=== PATIENT | male | born 1945 | race Caucasian/White ===

== ENCOUNTER 2021-04-06 09:22 | Outpatient (CLI) | payer BC, SELFPAY ==
--- NOTE | 2021-04-06 08:45 | DI.RAD_ITS ---
Exam(s) XR WRIST LT COMPLETE EXAM: XR WRIST LT COMPLETE CLINICAL HISTORY: pain. TECHNIQUE: 2D digital imaging was performed of the left wrist. Three images were obtained. PA, obl ique and lateral views were obtained. COMPARISON: DX XR WRIST COMPLETE from 04/08/2016 FINDINGS: BONES: No acute fracture is present. No bony destructive lesion is seen. JOINTS: There is again seen widening of the scapholunate joint suggestive of ligamentous injury. The re are now moderately severe degenerative changes seen at the radioscaphoid joint with joint space na rrowing and subchondral sclerosis. There is persistent dorsal tilt of the lunate. SOFT TISSUE: Normal. IMPRESSION: Progressive degenerative changes at the radiocarpal joint. 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 DATA REPOSITORY: RADIATION DOSE DELIVERED:
--- NOTE | 2021-04-06 08:45 | DI.RAD_ITS ---
Exam(s) XR HIP RT COMPLETE AP PELVIS EXAM: XR HIP RT COMPLETE AP PELVIS CLINICAL HISTORY: pain. TECHNIQUE: 2D digital imaging was performed of the right hip. Two images were obtained. AP pelvis a nd lateral right hip views were obtained. COMPARISON: No exams were available for comparison FINDINGS: BONES: No acute fracture is present. No bony destructive lesion is seen. JOINTS: No dislocation present. There are mild degenerative changes of the hips. SOFT TISSUE: Atherosclerosis is present. IMPRESSION: Mild degenerative changes of the hips. DATA REPOSITORY: RADIATION DOSE DELIVERED:
== END 2021-04-06 09:23 | disposition home or self-care (01) ==
LOC: DIORS 09:22
PROVIDERS: PCP Family Medicine; Referring Provider Family Medicine; Visit Provider Physician Assistant Surgical
DX: M25.551 Pain in right hip (principal); M25.532 Pain in left wrist; M16.11 Unilateral primary osteoarthritis, right hip; M19.132 Post-traumatic osteoarthritis, left wrist
CPT/HCPCS: 73110; 73502

== ENCOUNTER 2021-04-12 00:52 | Outpatient (CLI) | payer BC, SELFPAY ==
--- NOTE | 2021-04-12 13:01 | W.PROCNOTE ---
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 Noninvasive measures have been tried. To serve as both diagnostic and therapeutic, an injection under fluoroscopy was recommended. I had discussed the risks of the procedure and the patient elected to proceed. Procedure Description: Luke was greeted in the flouroscopy room. The correct sites were identified and the consent was reviewed with the patient and signed. Starting with the left wrist, he was sat next to the fluoroscopy table with the left hand resting on the table. The dorsum of the wrist was prepped with Chloraprep. Using fluoroscopy, a startng point between the distal radius and capitate was selected and located. The soft tissues were injected with 1% Lidocaine. I then entered the wrist joint at this location with fluoroscopic guidance. A small maount of Omnipaque was injected and confirmed intra-articular placement. I then injected 1cc of 0.5% Bupivacaine and 40mg of Depo-Medrol. He tolerated this wel land a bandaid was applied. Attention was then turned to the right hip. The patient was placed in the supine position on the fluoroscopy table. The RIGHT hip was then prepped with Chloraprep. The anterolateral injection starting point was identiifed by bony landmarks and fluoroscopy. The skin and soft tissue in the tract of the injection was anesthetized with 1% Lidocaine. A spinal needle was then inserted deep into the hip joint at the level of the lateral femoral neck under fluoroscopic guidance. A small amount of Omnipaque solution was injected to confirm intraarticular placement. Once confirmed, the hip was injected with 6cc of 0.5% Bupivicaine and 80mg of Depo-Medrol. A bandaid was placed on the injection site. The patient tolerated the procedure well and noted improvement in pre-injection pain.
[2021-04-12] MEDS: methylPREDNISolone ACETATE 40 MG/ML VIAL IM (13:03)
[2021-04-12] MEDS: Omnipaque 300 MG/ML 10 ML BTL IJ ×2 (13:04→13:06)
[2021-04-12] MEDS: Bupivacaine 0.5% Pres-Free 10 ML VIAL IJ ×2 (13:05→13:07)
[2021-04-12] MEDS: methylPREDNISolone ACETATE 80 MG/ML VIAL IM (13:06)
== END 2021-04-12 01:12 ==
PROVIDERS: PCP Family Medicine; Visit Provider Student in an Organized Health Care Education/Training Program
DX: M16.11 Unilateral primary osteoarthritis, right hip (principal); M19.032 Primary osteoarthritis, left wrist; M25.551 Pain in right hip; R10.31 Right lower quadrant pain; M25.532 Pain in left wrist
CPT/HCPCS: 20610; 20605; 76000; J1030; J1040

== ENCOUNTER 2021-09-03 01:40 | Outpatient (CLI) | payer BC, SELFPAY ==
[2021-09-03 14:50] LABS: Abs Immature Grans 0.02 10^3/uL (0.0-0.06); Absolute Basophil Count 0.09 10^3/uL (0.0-0.2); Absolute Eosinophil Count 0.15 10^3/uL (0.0-0.7); Absolute Lymphocyte Count 1.83 10^3/uL (1.2-3.4); Absolute Monocyte Count 0.53 10^3/uL (0.1-0.8); Absolute Neutrophil Count 6.69 10^3/uL (1.2-6.7); Eosinophils % 1.6; HCT 39.2 % (40.0-50.0); HGB 12.7 g/dL (13.5-17.5); Immature Grans % 0.2; Lymphocytes % 19.7; MCH 29.1 pg (27.0-33.0); MCHC 32.4 % (32.0-36.0); MCV 90 fL (80-95); MPV 9.8 fL (8.0-11.0); Monocytes % 5.7; Neutrophils % 71.8; Platelet Count 273 10^3/uL (130-400); RBC 4.37 10^6/uL (4.36-5.78); RDW 13.5 % (11.8-14.1); RDW-SD 44.6 fL; WBC 9.31 10^3/uL (4.4-10.8)
[2021-09-03 15:55] LABS: ALT 18 U/L (16-63); AST 13 U/L (15-37); Albumin 3.8 g/dL (3.4-5.0); Alkaline Phosphatase 72 U/L (46-116); Anion Gap 6.2 mmol/L (3-11); BUN 14 mg/dL (7-18); Bilirubin, Total 0.3 mg/dL (0.2-1.0); CO2 27.8 mmol/L (21.0-32.0); CREATININE 0.9 mg/dL (0.70-1.30); Calcium 9.2 mg/dL (8.5-10.1); Chloride 103 mmol/L (98-107); Glucose 96 mg/dL (74-106); Potassium 4.3 mmol/L (3.5-5.1); Sodium 137 mmol/L (136-145); Total Protein 7.2 g/dL (6.4-8.2)
[2021-09-06 09:50] LABS: PSA, Ultrasensitive 6.1 ng/mL (<= 6.5)
[2021-09-08 00:08] LABS: Testosterone, Total 313 ng/dL (240-950)
== END 2021-09-03 01:41 | disposition home or self-care (01) ==
LOC: LBO 01:40
PROVIDERS: PCP Family Medicine; Visit Provider Radiology Radiation Oncology
DX: Z15.03 Genetic susceptibility to malignant neoplasm of prostate (principal)
CPT/HCPCS: 80053; 84153; 84403; 85025

== ENCOUNTER → 2021-11-15 00:33 | Outpatient (CLI) | payer BC, SELFPAY ==
--- NOTE | 2021-11-15 | DI.RAD_ITS ---
Exam(s) XR ARTHRITIS SERIES EXAM: XR ARTHRITIS SERIES CLINICAL HISTORY: H/O RHEUMATOID ARTHRITIS,Z87.39,PAIN BOTH HANDS, M79.641,M79.642,BILAT WRIS. TECHNIQUE: 2D digital imaging was performed. COMPARISON: DX XR WRIST COMPLETE from 04/08/2016 FINDINGS: 3 views of both hands There is no evidence of fracture, subluxations, nor abnormal soft tissue calcifications. No osseous lesions. No erosions evident. In the left wrist there is significant degenerative narrowing in the radiocarpal joint. Also widening of the scapholunate distance at this level in the left wrist. Johnna lar findings are not seen in the right wrist. This is probably related to prior injury at this level . There are no degenerative changes at the 1st carpometacarpal joints on either side. Bone density is normal. No ominous osseous lesions. IMPRESSION: No erosions. Degenerative narrowing of the radiocarpal joint of the left wrist. Also widened scapholunate distanc e the left wrist. DATA REPOSITORY: RADIATION DOSE DELIVERED:
--- NOTE | 2021-11-15 | DI.RAD_ITS ---
Exam(s) XR SHOULDER LT COMPLETE 2+V EXAM: XR SHOULDER LT COMPLETE 2+V CLINICAL HISTORY: H/O RA,Z87.39,CHRONIC PAIN BILAT SHOULDERS,M25.511,M25.512,INFLAMMATORY. TECHNIQUE: 2D digital imaging was performed. COMPARISON: No exams were available for comparison FINDINGS: Five views No evidence of fracture or dislocation. No abnormal soft tissue calcifications no joint space narrow ing. Mild degenerative changes in the AC joint. Mild AC joint degenerative changes. Glenohumeral joint appears unremarkable. No fractures. IMPRESSION: DATA REPOSITORY: RADIATION DOSE DELIVERED:
--- NOTE | 2021-11-15 | DI.RAD_ITS ---
Exam(s) XR KNEE RT 3V AP,LAT,SHARIF EXAM: XR KNEE RT 3V AP,LAT,SHARIF CLINICAL HISTORY: H/O RA, BILAT KNEE PAIN, M25.561,M25.562,Z87.39. TECHNIQUE: 2D digital imaging was performed. COMPARISON: No exams were available for comparison FINDINGS: 3 views No evidence of fracture but there is a small joint effusion. Significant narrowing of the medial com partment. Milder narrowing of the lateral compartment. Chondrocalcinosis noted in the lateral sharad rtment as well as marginal osteophytes. Chondrocalcinosis also in the medial compartment. No ominou s osseous lesions IMPRESSION: Degenerative changes. DATA REPOSITORY: RADIATION DOSE DELIVERED:
--- NOTE | 2021-11-15 | DI.RAD_ITS ---
Exam(s) XR SHOULDER RT COMPLETE 2+V EXAM: XR SHOULDER RT COMPLETE 2+V CLINICAL HISTORY: H/O RA,Z87.39,CHRONIC BILAT SHOULDER PAIN, M25.511,M25.512. TECHNIQUE: 2D digital imaging was performed. COMPARISON: CR XR SHOULDER LT COMPLETE 2+V from 11/15/2021 FINDINGS: Five views No evidence of fracture nor dislocation. Some calcification is noted in the lateral subacromial spac e, probably related to calcific tendinitis. Minimal degenerative changes of glenohumeral joint. Mil d degenerative changes in the AC joint. No osseous lesions. Benign bone island noted in the osseous glenoid. IMPRESSION: Calcific rotator cuff tendinitis. DATA REPOSITORY: RADIATION DOSE DELIVERED:
--- NOTE | 2021-11-15 | DI.RAD_ITS ---
Exam(s) XR KNEE LT 3V AP,LAT,SHARIF EXAM: XR KNEE LT 3V AP,LAT,SHARIF CLINICAL HISTORY: H/O RA,BILAT KNEE PAIN, M25.561,M25.562,G89.29. TECHNIQUE: 2D digital imaging was performed. COMPARISON: CR XR KNEE RT 3V AP,LAT,SHARIF from 11/15/2021 FINDINGS: 3 views No evidence of fracture nor obvious joint effusion. Moderate degenerative changes in the medial lateral compartments including chondrocalcinosis in both of these compartments. Only mild joint space narrowing. Also significant degenerative changes in th e patellofemoral compartment. Calcification is noted just above the patella at the insertional aspec t of the quadriceps tendon. There is also calcification just below the patella projecting into the H offa intra-articular fat pad. Probable small loose bodies. These are separate from the patellar lig ament. IMPRESSION: DATA REPOSITORY: RADIATION DOSE DELIVERED:
== END ==
PROVIDERS: PCP Family Medicine; Visit Provider Internal Medicine
DX: M17.11 Unilateral primary osteoarthritis, right knee (principal); M25.562 Pain in left knee; G89.29 Other chronic pain; M75.31 Calcific tendinitis of right shoulder; M19.012 Primary osteoarthritis, left shoulder; M79.641 Pain in right hand; M79.642 Pain in left hand; M25.531 Pain in right wrist; M25.532 Pain in left wrist; Z87.39 Personal history of other diseases of the musculoskeletal system and connective tissue
CPT/HCPCS: 73562; 73030; 73120

== ENCOUNTER 2021-11-15 01:36 | Outpatient (CLI) | payer BC, SELFPAY ==
[2021-11-15 13:36] LABS: ESR 19 mm/hr (0-20)
[2021-11-15 13:56] LABS: C-Reactive Protein 0.62 mg/dL (0.0-0.3); Uric Acid 4.9 mg/dL (3.5-7.2)
[2021-11-15 21:53] LABS: Rheumatoid Factor 29.6 IU/mL (<12.0)
[2021-11-16 10:06] LABS: Cyclic Citrullinated Peptide 165.5 U/mL (<5.0)
[2021-11-16 14:47] LABS: HLA-B27 Result Negative
== END 2021-11-15 01:37 | disposition home or self-care (01) ==
LOC: LBO 01:37
PROVIDERS: PCP Family Medicine; Visit Provider Internal Medicine
DX: G89.29 Other chronic pain (principal); M25.511 Pain in right shoulder; M25.512 Pain in left shoulder; M25.531 Pain in right wrist; M25.532 Pain in left wrist; M79.641 Pain in right hand; M79.642 Pain in left hand; M25.551 Pain in right hip; M25.552 Pain in left hip; M25.561 Pain in right knee; M25.562 Pain in left knee; Z87.39 Personal history of other diseases of the musculoskeletal system and connective tissue
CPT/HCPCS: 36415; 85652; 86200; 86812; 84550; 86140; 86431

== ENCOUNTER 2022-06-28 13:51 | Outpatient (CLI) | payer BC, SELFPAY ==
[2022-07-01 09:25] LABS: PSA, Screening 1.4 ng/mL (<=6.5)
== END 2022-06-28 13:52 | disposition home or self-care (01) ==
LOC: LBO 13:54
PROVIDERS: PCP Family Medicine; Visit Provider Family Medicine
DX: Z85.46 Personal history of malignant neoplasm of prostate (principal)
CPT/HCPCS: 36415; 84153

== ENCOUNTER 2022-07-26 03:01 | Outpatient (CLI) | payer BC, SELFPAY ==
[2022-07-26 10:23] LABS: C-Reactive Protein 0.76 mg/dL (0.0-0.3)
[2022-07-26 19:54] LABS: Rheumatoid Factor 46.3 IU/mL (<12.0)
== END 2022-07-26 03:02 | disposition home or self-care (01) ==
LOC: LBO 03:03
PROVIDERS: PCP Family Medicine; Visit Provider Family Medicine
DX: M06.9 Rheumatoid arthritis, unspecified (principal)
CPT/HCPCS: 36415; 84550; 86140; 86431

== ENCOUNTER 2022-09-18 05:49 | Outpatient (CLI) | payer BC, SELFPAY ==
[2022-09-18 14:01] LABS: Abs Immature Grans 0.03 10^3/uL (0.0-0.06); Absolute Basophil Count 0.06 10^3/uL (0.0-0.2); Absolute Eosinophil Count 0.26 10^3/uL (0.0-0.7); Absolute Monocyte Count 0.65 10^3/uL (0.1-0.8); Absolute Neutrophil Count 6.76 10^3/uL (1.2-6.7); Basophils % 0.7; Eosinophils % 2.9; HCT 38.7 % (40.0-50.0); Immature Grans % 0.3; Lymphocytes % 14.3; MCH 29.9 pg (27.0-33.0); MCHC 33.6 % (32.0-36.0); MCV 89 fL (80-95); MPV 9.7 fL (8.0-11.0); Monocytes % 7.2; Neutrophils % 74.6; Platelet Count 268 10^3/uL (130-400); RBC 4.35 10^6/uL (4.36-5.78); RDW-SD 42.4 fL; WBC 9.06 10^3/uL (4.4-10.8)
[2022-09-18 14:57] LABS: ALT 15 U/L (16-63); AST 15 U/L (15-37); Albumin 3.7 g/dL (3.4-5.0); Alkaline Phosphatase 84 U/L (46-116); Anion Gap 6.7 mmol/L (3-11); BUN 20 mg/dL (7-18); Bilirubin, Total 0.3 mg/dL (0.2-1.0); CO2 29.3 mmol/L (21.0-32.0); CREATININE 0.9 mg/dL (0.70-1.30); Calcium 9.9 mg/dL (8.5-10.1); Chloride 103 mmol/L (98-107); Estimated GFR 87.42 (mL/min/1.73m2); Glucose 102 mg/dL (74-106); Potassium 4.1 mmol/L (3.5-5.1); Sodium 139 mmol/L (136-145); Total Protein 7.6 g/dL (6.4-8.2)
[2022-09-19 16:44] LABS: PSA, Ultrasensitive 1.4 ng/mL (<= 6.5)
[2022-09-26 11:48] LABS: Testosterone, Total 290 ng/dL (240-950)
== END 2022-09-18 05:50 | disposition home or self-care (01) ==
LOC: LBO 05:50
PROVIDERS: PCP Family Medicine; Visit Provider Radiology Radiation Oncology
DX: C61 Malignant neoplasm of prostate (principal)
CPT/HCPCS: 36415; 80053; 84153; 84403; 85025

== ENCOUNTER 2023-01-17 02:36 | Outpatient (CLI) | payer BC, SELFPAY ==
[2023-01-17 14:06] LABS: Abs Immature Grans 0.06 10^3/uL (0.0-0.06); Absolute Basophil Count 0.08 10^3/uL (0.0-0.2); Absolute Eosinophil Count 0.15 10^3/uL (0.0-0.7); Absolute Lymphocyte Count 1.51 10^3/uL (1.2-3.4); Absolute Neutrophil Count 8.07 10^3/uL (1.2-6.7); Basophils % 0.7; Eosinophils % 1.4; HCT 38.6 % (40.0-50.0); HGB 12.9 g/dL (13.5-17.5); Immature Grans % 0.6; Lymphocytes % 14.2; MCH 29.7 pg (27.0-33.0); MCHC 33.4 % (32.0-36.0); MCV 89 fL (80-95); MPV 9.9 fL (8.0-11.0); Monocytes % 7.5; Neutrophils % 75.6; Platelet Count 378 10^3/uL (130-400); RBC 4.35 10^6/uL (4.36-5.78); RDW 13.5 % (11.8-14.1); RDW-SD 44.4 fL; WBC 10.67 10^3/uL (4.4-10.8)
== END 2023-01-17 02:37 | disposition home or self-care (01) ==
LOC: LBO 02:36
PROVIDERS: PCP Family Medicine; Visit Provider Nurse Practitioner Family
DX: D64.9 Anemia, unspecified (principal)
CPT/HCPCS: 36415; 85025

== ENCOUNTER 2023-05-01 14:55 | Outpatient (CLI) | payer BC, SELFPAY ==
[2023-05-02 21:26] LABS: PSA, Ultrasensitive 0.83 ng/mL (<= 6.5)
[2023-05-06 19:52] LABS: Testosterone, Total 376 ng/dL (240-950)
== END 2023-05-01 14:56 | disposition home or self-care (01) ==
LOC: LBO 14:57
PROVIDERS: PCP Family Medicine; Visit Provider Colon & Rectal Surgery
DX: C61 Malignant neoplasm of prostate (principal)
CPT/HCPCS: 36415; 84153; 84403

== ENCOUNTER 2023-09-11 05:23 | Outpatient (CLI) | payer BC, SELFPAY ==
[2023-09-13 10:11] LABS: PSA, Ultrasensitive 0.31 ng/mL (<= 6.5)
[2023-09-18 00:33] LABS: Testosterone, Total 223 ng/dL (240-950)
== END 2023-09-11 05:24 | disposition home or self-care (01) ==
PROVIDERS: PCP Family Medicine; Visit Provider Colon & Rectal Surgery
DX: C61 Malignant neoplasm of prostate (principal)
CPT/HCPCS: 36415; 84153; 84403

== ENCOUNTER 2024-01-14 14:46 | Outpatient (CLI) | payer BC, SELFPAY ==
[2024-01-14 15:50] LABS: ALT 16 U/L (16-63); AST 14 U/L (15-37); Albumin 3.4 g/dL (3.4-5.0); Alkaline Phosphatase 84 U/L (46-116); Anion Gap 5.6 mmol/L (3-11); BUN 12 mg/dL (7-18); CO2 29.4 mmol/L (21.0-32.0); CREATININE 1.1 mg/dL (0.70-1.30); Calcium 9.6 mg/dL (8.5-10.1); Chloride 105 mmol/L (98-107); Estimated GFR 68.29 (mL/min/1.73m2); Glucose 95 mg/dL (74-106); Potassium 4.1 mmol/L (3.5-5.1); Sodium 140 mmol/L (136-145); TSH 2.02 uIU/Ml (0.36-3.74); Total Protein 7.2 g/dL (6.4-8.2)
[2024-01-16 11:17] LABS: IgA 226 mg/dL (85-499); IgG 972 mg/dL (610-1616)
[2024-01-16 14:09] LABS: Tissue Transglutaminase IgA <4.0 CU (<20.0)
== END 2024-01-14 14:47 | disposition home or self-care (01) ==
LOC: LBO 14:47
PROVIDERS: PCP Family Medicine; Visit Provider Nurse Practitioner Gerontology
DX: R19.8 Other specified symptoms and signs involving the digestive system and abdomen (principal)
CPT/HCPCS: 36415; 80053; 82784; 84443

== ENCOUNTER 2024-02-10 02:19 | Outpatient (CLI) | payer BC, SELFPAY ==
[2024-02-11 17:59] LABS: PSA, Ultrasensitive 0.18 ng/mL (<= 6.5)
== END 2024-02-10 02:20 | disposition home or self-care (01) ==
PROVIDERS: PCP Family Medicine; Visit Provider Physician Assistant
DX: C61 Malignant neoplasm of prostate (principal)
CPT/HCPCS: 36415; 84153

== ENCOUNTER 2024-02-25 08:38 | Day surgery (SDC) | payer BC, SELFPAY ==
--- NOTE | 2024-02-24 16:28 | PDOC.DSDIS_ITS ---
Date of service: 02/25/24 Time of Service: 11:13 Discharge Plan Disposition Patient Disposition: Home Condition: Good Discharge Details Reason For Visit: EGD and colonoscopy Attending Provider: Emmanuel Claros Primary Care Provider: Oleg Lazo Home Meds and New Rx's Prescriptions: Continued fluoxetine 10 mg tablet 10 mg PO .QOD aspirin 81 mg tablet,delayed release (DR/EC) 81 mg PO DAILY melatonin 1 mg tablet 2 mg PO HS PRN alfuzosin 10 mg tablet extended release 24 hr 10 mg PO DAILY Qty: 90 0RF Rx Instructions: administer after the same meal each day simvastatin 40 mg tablet 40 mg PO DAILY Qty: 90 3RF cranberry 500 mg capsule 1,000 mg PO DAILY Rx Instructions: administer with meals cholecalciferol (vitamin D3) 50,000 UNIT capsule 50,000 unit PO q 2 wks Natural Fiber Laxative (sugar) Powder 1 tbsp PO DAILY Patient Comments: 10/08/23 GI recommended fiber powder supplement daily Discontinued polyethylene glycol 3350 17 gram/dose powder 238 g PO ONCE Qty: 238 0RF Rx Instructions: take per colonoscopy instructions bisacodyl [Dulcolax (bisacodyl)] 5 mg tablet,delayed release (DR/EC) 5 mg PO ONCE Qty: 4 0RF Rx Instructions: take per colonoscopy instructions Discharge Instructions Instructions: Esophageal varices, Diverticulosis Additional Instructions: Vickey, it was very nice seeing you today, and I hope you are comfortable during the procedures. With regards to your upper endoscopy, you do have some evidence of esophageal varices. I would consider these grade 1, which is the lowest grade. Varices typically occur as patients develop cirrhosis. In that regards, it may be useful to discuss these findings with your primary care physician to see if there is anything else that needs to be done with regards to evaluation of your liver. Otherwise, the upper endoscopy was totally normal-appearing. As I mentioned before hand, I did do some biopsies of your duodenum, stomach, and esophagus to rule out anything that may not be evident to the naked eye. Your colonoscopy also went very smoothly. Your prep was excellent and I could see everything just fine. You have some diverticulosis. Diverticula are little weak spots in the muscular part of the colon wall, this causes little pouches or pockets to form. If those get infected or inflamed, then we refer to it as diverticulitis. This could explain some left lower quadrant discomfort. Otherwise, everything appears normal. Similar to your upper endoscopy, I did multiple biopsies along the length of your colon as well. Obviously, if there is anything striking on the biopsy results, I will certainly let you know that. Otherwise, I am happy to provide all of these results down to [facility] to complement the workup that they have already started. If you need anything or have any questions at all, please do not hesitate to call. 1. If tolerated, consume a soft, low fiber diet for 1-2 days. [address] Do not drive, drink alcohol, operate machinery, make critical decisions, or do activities that require coordination or balance for 24 hours. 3. Because air was put into your colon during the procedure, expelling air from your rectum (passing gas or farting) is normal. 4. You may not have a bowel movement for 1-3 days because of the colonoscopy prep. This is normal. 5. You may experience a sore throat for 24 to 48 hours. You may use throat lozenges or gargle with warm salt water to relieve the discomfort. 6. Because air was put into your stomach during the procedure, you may experience some belching. 7. Go directly to the emergency room if you notice any of the following: Develop chills (warm to touch), or if you have a thermometer and your temperature is above 101 Difficulty breathing or difficultly swallowing Persistent vomiting Severe abdominal pain, other than gas cramps Severe chest pain Black, tarry stools Any bleeding ? exceeding one tablespoon 8. Call your physician if the site where your intravenous was started becomes red, swollen, painful, and warm to touch. 9. Your physician has reviewed your pre-procedure medications. Please continue to take those medications as previously ordered. You will be given specific information/education regarding any changes to your medications before leaving. Stand Alone Forms: Anesthesia Discharge Inst., Ismael Muro (DSU) Activity:: Activity as Tolerated Diet:: As Tolerated Discharge Orders Discharge Orders: Discharge Order (Routine); Ordered 02/24/24 Ordered By: Emmanuel Claros DS: Diagnosis Discharge Diagnosis (1) Functional gastrointestinal disorder: Status: Acute Asessment and Plan: Follow-up on biopsy results
--- NOTE | 2024-02-24 16:32 | ENDO_ITS ---
Date of service: 02/25/24 Time of Service: 11:16 Endoscopy Report DATE OF PROCEDURE: 02/25/24 PRE-OP DIAGNOSIS: Functional gastrointestinal disorder POST-OP DIAGNOSIS: same PROCEDURE: EGD with biopsies and colonoscopy with biopsies SURGEON: Emmanuel Claros ANESTHESIA TYPE: General:No Airway ESTIMATED BLOOD LOSS: 10 PATHOLOGY: other (Random biopsies of duodenum, duodenal bulb, gastric antrum, gastric body, GE junction, and esophagus; random biopsies of colon) INDICATIONS: Vickey is a 78-year-old male with nonspecific abdominal discomfort. He was referred from [facility] gastroenterology for upper and lower endoscopy as part of workup for functional gastrointestinal disorder. PREP: Miralax/Dulcolax PROCEDURE START TIME: 10:36 PROCEDURE END TIME: 11:01 COLONOSCOPY RETRACTION TIME: 9 FINDINGS: Grade 1 esophageal varices at 15 cm from the incisors, otherwise negative appearing EGD; sigmoid diverticulosis PROCEDURE DESCRIPTION: After the initiation of anesthesia, and with the assistance of a bite block, I advanced a standard gastroscope through the mouth past the hypopharynx and into the esophagus.? Under the direct vision of the scope, I advanced down the esophagus towards the stomach.? Around 15 cm from the incisors with some faint evidence of esophageal variceal disease. I would consider this grade 1. I was able to advance across this without any difficulty. Mucosa overlying the varices. Normal and healthy. The GE junction and Z-line were normal-appearing and regular, measuring 36 cm from the incisors. Narrowband imaging was used to assist with the analysis here. 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 Once I entered the stomach, I performed a brief inspection, followed by retroflexion towards the gastric cardia.? This appeared normal.? After that, I gently advanced the scope around the incisura angularis and examined the pylorus.? This also appeared normal.? Next, I advanced the scope through the pylorus into the duodenum.? The mucosa was pink and healthy appearing.? There were no abnormalities.? I was able to visualize bile draining into the duodenum through the ampulla Vater. ?Next, I began retracting the endoscope.? I perform random biopsies of the duodenum and duodenal bulb to rule out celiac disease as a source of his symptoms. Biopsies were performed with cold forceps with minimal bleeding. I brought the camera back up into the stomach and perform some nondirected biopsies of the gastric antrum and body as well. Finally, I emptied the stomach and brought the camera back up into the esophagus. A few random biopsies along the length of the esophagus were performed to rule out esophagitis. The camera was then removed, and Vickey was rolled into the left lateral decubitus position formally. Great care was taken to pad and support him appropriately. External anorectal exam was normal. Next, I performed a digital rectal exam.? I did not appreciate any abnormal findings.? Next, I advanced a colonoscope into the rectal vault.? I performed retroflexion.? This appeared normal.? Using insufflation, I then advanced the colonoscope beyond the rectal folds and into the sigmoid colon before advancing towards the cecum.? The quality of the prep was excellent.? There is some sigmoid diverticulosis the scope was noted to be in the cecum by identification of the ileocecal valve and appendiceal orifice.? I am able to cannulate the terminal ileum and advance several centimeters then. All of this was normal-appearing. I then began withdrawing the colonoscope using repeated irrigation as necessary for full evaluation of the colonic mucosa. ?I performed nondirected biopsies of the colonic mucosa from the cecum to the rectum with cold forceps. There were no complications from this. Section of sigmoid diverticulosis measured from 35 cm beyond the anal verge down to about 17 cm beyond the anal verge. Once the scope was withdrawn to the level of the rectum, great care was taken to examine portions of the rectal folds.? Finally, the scope was withdrawn and the patient was brought to the same-day surgery recovery unit as the anesthetic wore off. ?The findings and instructions were shared with the patient prior to discharge. The Eglon bowel prep score from right to left was 3, 3, 3
[2024-02-25 08:55] VITALS: BP 123/79; PULSE 100; RESP 20; TEMP 36.4; O2SAT 97
[2024-02-25] MEDS: Lactated Ringers 500 ML 80 ML IV (09:11)
--- NOTE | 2024-02-25 09:29 | ANES.PREOP_ITS ---
General Info Date of Service Date Performed: 02/25/24 Height: 5 ft 7 in Weight: 74.5 kg Body Mass Index (BMI): 25.7 Surgical Procedure: Operation Date: 02/25/24 10:05 Proposed Procedure Side Surgeon p Colonoscopy/Gastroscopy Emmanuel Claros MD Meds Allergies and Home Medications Allergies Allergy/AdvReac Type Severity Reaction Status Date / Time No Known Allergies Allergy Verified 02/25/24 08:52 Home Medication ?Medication ?Instructions ?Recorded cholecalciferol (vitamin D3) 1,250 50,000 unit PO q 2 wks 10/03/16 mcg (50,000 unit) capsule aspirin 81 mg tablet,delayed 81 mg PO DAILY 11/13/22 release melatonin 1 mg tablet 2 mg PO HS PRN 11/13/22 fluoxetine 10 mg tablet 10 mg PO .QOD 05/16/23 alfuzosin 10 mg tablet,extended 10 mg PO DAILY #90 tabs 10/09/23 release 24 hr simvastatin 40 mg tablet 40 mg PO DAILY #90 tabs 10/09/23 psyllium seed (sugar) oral powder 1 tbsp PO DAILY 10/16/23 (Natural Fiber Laxative (sugar) oral powder) cranberry 500 mg capsule 1,000 mg PO DAILY 01/27/24 Current Visit Medications: Current Medications Generic Name Dose Route Start Last Admin Trade Name Joelq PRN Reason Stop Dose Admin Hyoscyamine Sulfate 0.125 mg 02/24/24 16:33 Hyoscyamine 0.125 Mg Sl/Oral/Chew SL 03/25/24 16:32 DIRECTED PRN Ringer's Solution 500 mls @ 80 mls/hr 02/25/24 06:00 02/25/24 09:11 IV 03/25/24 23:59 80 mls/hr INFUSION KIMMIE Administration IV Miscellaneous Supplies 1 each 02/25/24 06:00 Iv Access IV 03/25/24 23:59 DIRECTED KIMMIE Ondansetron HCl 4 mg 02/24/24 16:33 Ondansetron 4 Mg/2 Ml Vial IVP 03/25/24 16:32 Q4H PRN PRN Nausea / Vomiting Sodium Chloride 0 ml 02/25/24 06:00 Normal Saline Flush 10 Ml Syr IV 03/25/24 23:59 PRN PRN Sodium Chloride 0 ml 02/25/24 06:00 Normal Saline 10 Ml Vial IJ 03/25/24 23:59 DIRECTED PRN Sterile Water 0 ml 02/25/24 06:00 Water,Injection,Sterile 10 Ml Vial IJ 03/25/24 23:59 DIRECTED PRN PFSH Active Problems Active Problems: Problem Status Onset Code Functional gastrointestinal disorder Acute K92.9 Anemia Chronic D64.9 Malignant neoplasm of prostate Chronic 07/25/21 C61 Vitamin D deficiency Acute Depression Chronic Anxiety Chronic F41.9 Hyperlipidemia Acute E78.5 Medical History Medical History LLQ pain (~2020) 10/08/23 [facility] (pain wraps around to back), plan: labs and colonscopy Altered bowel function 10/08/23 [facility] Alcohol use disorder Tobacco use disorder QUIT 1985 Pulmonary nodule 11/[address]: no f/u needed PMR (polymyalgia rheumatica) vs. RA? 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 PMR? Dx was in dispute Surgical History Surgical History Status post appendectomy (~1997) History of hernia surgery B/L inguinal; [place], [place] EGD - [facility] (03/12/17) Colonoscopy - [facility] Tobacco Smoking/Tobacco Use Status: Former Tobacco Use Passive smoking exposure: No Alcohol Alcohol Intake: never Substance Use Substance use: Never Substance use type: does not use Vital Signs and Lab Results Vital Signs Most Recent Vital Signs in EMR: Most Recent Vital Signs Temp Pulse Resp BP Pulse Ox 36.4 C L 100 H 20 123/79 97 02/25/24 08:55 02/25/24 08:55 02/25/24 08:55 02/25/24 08:55 02/25/24 08:55 Lab Results Blood Type / Crossmatch: No Data to Display Complete Blood Count: No Data to Display Complete Metabolic Panel: No Data to Display Liver Function Panel: No Data to Display Coagulation Panel: No Data to Display Cardiac Panel: No Data to Display Arterial Blood Gas: No Data to Display Venous Blood Gas: No Data to Display Pancreas Panel: No Data to Display Thyroid Panel: No Data to Display Infectious Disease: No Data to Display Blood Cultures: No Data to Display Toxicology Panel: No Data to Display Anesthesia Assessment and Plan Anesthesia History Personal History: No History of Anesthesia Complications Family History: No Family History of Anesthesia Complications Exercise Tolerance Exercise Tolerance: Metabolic Equivalents>4 Pertinent Negatives Pertinent Negatives: No Symptoms of GERD Cardiac & Pulmonary Exam Cardiac Exam: Normal S1/S2 Heart Sounds Pulmonary Exam: Clear Bilateral Breath Sounds Implantable Cardiac Device Does patient have a Pacemaker or an ICD?: No Airway Exam Known Difficult Airway: No Mallampati Class: 2 Mouth Opening: Normal (> 3cm) Thyromental Distance: Greater than 3 cm Neck Range of Motion: Full ROM Neck Circumference: Normal Teeth Condition: Normal Dentition ASA Classification ASA Score: ASA 2 Emergency Case?: No NPO Status NPO Status: NPO Clears >2 hours, Solids >8 hours Anesthesia Plan Resuscitation Status: Full Code Anesthesia Technique: General Anesthesia Airway Planned: Natural Airway Monitors Used: Standard Monitors
[2024-02-25 09:31] VITALS: BMI 25.7
--- NOTE | 2024-02-25 10:39 | STOM_PTH ---
PATIENT: Luke De Dios LOC: [facility] U#:[id number] AGE/SX: 78/M ROOM: RE02/25/[address]: Emmanuel Claros MD : [id number] BED: DIS: 02/25/2024 SPEC #: [id number] RECD: 02/25/24 12:33 STATUS: SOUJayce REQ #: [id number] OBDULIA: 02/25/24 10:[address]: Emmanuel Claros DEPT: Surgical Specimen RECD BY: Joelle Bailey ENTERED: 02/25/24 12:36 SP TYPE: STOMACH OTHR DR: Oleg Lazo DO Tissues: 1 - BIOPSY BOWEL 2 - BIOPSY BOWEL 3 - STOMACH BIOPSY 4 - STOMACH BIOPSY 5 - ESOPHAGUS BIOPSY 6 - ESOPHAGUS BIOPSY 7 - BIOPSY BOWEL Procedures: GROSS AND MICRO LEVEL 4 Comments: [id number]
[2024-02-25 11:07] VITALS: BP 95/70; PULSE 66; RESP 18; TEMP 36.5; O2SAT 96
--- NOTE | 2024-02-25 11:14 | W.ANESPOSTOP ---
Postoperative Evaluation Date, Time and Location Date Performed: 02/25/24 Time Performed: 11:14 Patient Location: Day Surgery Unit Vital Signs Most Recent Imported Vital Signs: Most Recent Vital Signs Temp Pulse Resp BP Pulse Ox 36.5 C 66 18 95/70 L 96 02/25/24 11:07 02/25/24 11:07 02/25/24 11:07 02/25/24 11:07 02/25/24 11:07 Assessment Mental Status: Awake (Alert & Oriented to Patient Baseline) Airway and Respiratory Function: Patent airway with normal (patient baseline) respiratory exam Cardiovascular Function: Hemodynamically Stable Hydration Status: Adequately Hydrated Nausea & Vomiting: No Nausea or Vomiting Pain: Pt. Denies Any Pain Peripheral Nerve Block: Patient did not receive a nerve block
[2024-02-25 11:35] VITALS: BP 118/78; PULSE 70; RESP 18; TEMP 36.4; O2SAT 97
== END 2024-02-25 12:15 | disposition home or self-care (01) ==
LOC: SUR 08:39
PROVIDERS: PCP Family Medicine; Visit Provider Surgery
PROC: (CPT 45380; principal; 2024-02-25 10:00)
DX: I10 Essential (primary) hypertension; K59.9 Functional intestinal disorder, unspecified; K57.30 Diverticulosis of large intestine without perforation or abscess without bleeding; I85.00 Esophageal varices without bleeding; K22.89 Other specified disease of esophagus; K31.89 Other diseases of stomach and duodenum
CPT/HCPCS: 45380; 43239; 88305; J2704

== ENCOUNTER 2024-05-03 02:11 | Outpatient (CLI) | payer BC, SELFPAY ==
--- NOTE | 2024-05-03 | DI.CT_ITS ---
Exam(s) CT ABDOMEN PELVIS W EXAM: CT ABDOMEN PELVIS W CLINICAL HISTORY: ESOPHAGEAL VARICES,LLQ PAIN, R10.32,i85.00,? PORTAL VEIN TECHNIQUE: Imaging Protocol: Axial computed tomography images with coronal and sagittal reformatted images were created and reviewed. CONTRAST MATERIAL: Intravenous: Omnipaque 350 Contrast volume:75 mL Oral: Yes COMPARISON: CT ABDOMEN PELVIS WITH CONTRAST from 11/28/2020 FINDINGS: ABDOMEN: Lung Bases: No acute abnormality. No varices are seen around the distal esophagus. Liver: Normal density. No measurable mass. Calcified granuloma are seen in the liver. Portal, Superior Mesenteric, and Splenic Veins: Unremarkable. Gallbladder and Biliary Tract: No radiodense calculus or dilation. Pancreas: Normal density, no abnormal calcifications or inflammatory process. Spleen: Splenic granuloma are present. Adrenals: No masses seen. Kidneys: Normal size, contour and axis. No radiodense stones or obstructive uropathy. No masses seen. Abdominal Aorta: Abdominal portion non-dilated. Atherosclerotic calcification is present. Bowel: There is diverticulosis of the colon without evidence of acute diverticulitis. No evidence of bowel wall thickening or bowel obstruction. There are surgical clips in the right upper quadrant khoury ggesting prior appendectomy. Peritoneal Cavity: No ascites, collection or mesenteric inflammatory response. No free air. Lymph Nodes: Within normal limits. Bones: Within normal limits for the patient's age. There are degenerative changes seen in the hips b ilaterally right greater than left. Soft Tissues: There is a small fat containing left inguinal hernia. PELVIS: Bladder: The urinary bladder is incompletely distended. There is thickening of the wall of the bladd er. This may be due to the underdistention, cystitis cannot be excluded. Reproductive Organs: The prostate gland is enlarged. Lymph Nodes: Within normal limits. Bones: Within normal limits for the patient's age. IMPRESSION: 1. No acute abdominal or pelvic process. 2. There is colonic diverticulosis without evidence of acute diverticulitis. 3. Diffuse thickening of the wall of the urinary bladder. This may be due to underdistention or cyst itis. Neoplastic process cannot be excluded. Please correlate clinically. 4. Prostatomegaly. RADIATION DOSE DELIVERED: 433.44mGy.cm Total DLP DATA REPOSITORY: All CT scans at this facility are submitted to the National Radiology Data Registry (NRDR) Dose Index Registry (DIR) with the [employer] (ACR). RADIATION OPTIMIZATION: All CT scans at this facility use at least one of these dose optimization te chniques: automated exposure control; mA and/or kV adjustment per patient size (includes targeted exa ms where dose is matched to clinical indication); or iterative reconstruction.
[2024-05-03] MEDS: Barium Sulfate 2% W/V-Berry Smoothie 450 ML BTL PO (07:41)
[2024-05-03] MEDS: Barium Sulfate 2% W/V-Creamy Vanilla Smoothie 450 ML BTL PO (07:42)
[2024-05-03 08:09] LABS: CREATININE 1.1 mg/dL (0.70-1.30); Estimated GFR 68.29 (mL/min/1.73m2)
[2024-05-03] MEDS: Normal Saline - Diluent 50 ML VIAL IJ (09:57)
[2024-05-03] MEDS: Omnipaque 350 MG/ML 100 ML BTL 75 ML IJ (09:58)
[2024-05-05 10:15] LABS: PSA, Ultrasensitive 0.18 ng/mL (<= 6.5)
== END 2024-05-03 02:31 ==
LOC: DI 02:12
PROVIDERS: Physician Assistant; PCP Family Medicine; Visit Provider Nurse Practitioner Gerontology
DX: K57.30 Diverticulosis of large intestine without perforation or abscess without bleeding (principal); N40.0 Benign prostatic hyperplasia without lower urinary tract symptoms
CPT/HCPCS: 84153; 74177; 82565; J3490

== ENCOUNTER 2024-07-25 20:09 | Emergency (ER) | payer BC, SELFPAY ==
[2024-07-25 20:13] VITALS: BP 197/73; PULSE 90; RESP 20; TEMP 36.7; O2SAT 98
--- NOTE | 2024-07-25 20:19 | ED.GENADUL_ITS ---
Discharge Plan Disposition Patient Disposition: Home Condition: Stable Discharge Details Clinical Impression: Hematuria Primary Care Provider: Oleg Lazo ED Provider: Ryder Infante Home Meds and New Rx's Prescriptions: Continued melatonin 1 mg tablet 2 mg PO HS PRN alfuzosin 10 mg tablet extended release 24 hr 10 mg PO DAILY Qty: 90 0RF Rx Instructions: administer after the same meal each day simvastatin 40 mg tablet 40 mg PO DAILY Qty: 90 3RF cranberry 500 mg capsule 1,000 mg PO DAILY Rx Instructions: administer with meals cholecalciferol (vitamin D3) 50,000 UNIT capsule 50,000 unit PO q 2 wks fluoxetine 10 mg tablet See Rx Instructions .ROUTE .COMPLEX Qty: 90 3RF Dose Instruction: TAKE ONE TABLET BY MOUTH EVERY DAY Rx Instructions: TAKE ONE TABLET BY MOUTH EVERY DAY pantoprazole [Protonix] 40 mg tablet,delayed release (DR/EC) 40 mg PO DAILY Rx Instructions: 06/14/24- per [facility] [place]-await pathology, use protonix 40mg daily. Staci Townsend MD Discharge Instructions Additional Instructions: Your lab work did not show any concerning finding other than blood in your urine. Your urine was sent for culture, if this grows any bacteria he will be called. I would recommend following up with your urologist. If you feel more ill or develop new symptoms such as severe abdominal or back pain, difficulty breathing or high fevers return to the emergency department for reevaluation HPI General Mode of arrival: ambulatory . Date/Time Provider Initiated Documentation: 07/25/24 20:09 . Limitations to Documentation: no limitations . Information obtained by: patient . History of Present Illness 78 year old M presents to the emergency department with the chief complaint of blood in urine, described as moderate, Patient started experiencing this hour(s) (1) and it has been constant. No relieving factors improve symptom(s), No exacerbating factors reported . Patient notes no other symptoms.. Patient did receive the following treatments prior to arrival, none Related Data Home Medications ?Medication ?Instructions ?Recorded ?Confirmed cholecalciferol (vitamin D3) 1,250 50,000 unit PO q 2 wks 10/03/16 07/25/24 mcg (50,000 unit) capsule melatonin 1 mg tablet 2 mg PO HS PRN 11/13/22 07/25/24 alfuzosin 10 mg tablet,extended 10 mg PO DAILY #90 tabs 10/09/23 07/25/24 release 24 hr simvastatin 40 mg tablet 40 mg PO DAILY #90 tabs 10/09/23 07/25/24 cranberry 500 mg capsule 1,000 mg PO DAILY 01/27/24 07/25/24 fluoxetine 10 mg tablet See Rx Instructions .Route 06/03/24 07/25/24 .COMPLEX #90 tabs pantoprazole 40 mg tablet,delayed 40 mg PO DAILY 06/14/24 07/25/24 release (Protonix) Previous Rx's ?Medication ?Instructions ?Recorded alfuzosin 10 mg tablet,extended 10 mg PO DAILY #90 tabs 10/09/23 release 24 hr simvastatin 40 mg tablet 40 mg PO DAILY #90 tabs 10/09/23 fluoxetine 10 mg tablet See Rx Instructions .Route 06/03/24 .COMPLEX #90 tabs Allergies Allergy/AdvReac Type Severity Reaction Status Date / Time No Known Allergies Allergy Verified 07/25/24 20:15 General Stated Complaint: Urinary BEV: 3 Review of Systems All systems reviewed & are unremarkable except as noted in HPI and below Constitutional Constitutional: Denies chills, Denies fever(s) and Denies weakness Cardiovascular Cardiovascular: Denies chest pain and Denies dyspnea Respiratory Respiratory: Denies cough and Denies dyspnea Gastrointestinal Gastrointestinal: Denies abdominal pain, Denies nausea and Denies vomiting Genitourinary Genitourinary: Reports hematuria Neurologic Neurologic: Denies weakness Psychiatric Psychiatric: Denies depression Exam Const General: no acute distress Orientation: alert HENLA Head: normal to inspection Ears: external ears normal General nose exam: external nose normal Mouth: moist mucous membranes Eyes General: appearance normal, both eyes and all related structures Neck Neck: normal visual inspection Resp Effort & Inspection: normal respiratory effort and able to speak in complete sentences Cardio Rate: regular rate GI Palpation: soft and nontender Penis: normal penis, not edematous and no swelling Meatus: meatus normal Scrotum: scrotum normal Skin General skin exam: no rashes or lesions noted Neuro General: patient alert and patient oriented x3 Extrem General: normal to inspection Psych Mental Status: mental status grossly normal Course Vital Signs Vital signs: Vital Signs Temperature 36.7 C 07/25/24 20:13 Pulse 90 07/25/24 20:13 Respiratory Rate 20 07/25/24 20:13 Blood Pressure 197/73 H 07/25/24 20:13 Pulse Oximetry 98 07/25/24 20:13 Temperature 36.7 C 07/25/24 20:13 Pulse 90 07/25/24 20:13 Respiratory Rate 20 07/25/24 20:13 Blood Pressure 197/73 H 07/25/24 20:13 Blood Pressure Position Sitting 07/25/24 20:13 Pulse Oximetry 98 07/25/24 20:13 Oxygen Delivery Method Room Air 07/25/24 20:13 Oxygen Flow Rate 0 07/25/24 20:13 Medical Decision Making 78-year-old male has had prior prostate cancer status postresection comes in with blood in his urine. Sinusitis going all day and tonight he masturbated and then 30 minutes later he urinated and it was bloody so he came here. He states he feels well otherwise he denies any penis pain, scrotal pain, abdominal pain. No fevers or chills, no back pain. He is well-appearing speaking full sentences in no stress. He has a soft nontender abdomen. He has no tenderness of the penis with no palpable deformities and he is no swelling of the scrotum or tenderness of the testes. Denies complaint will check a UA and also CBC and BMP and reassess. Given lack of back pain and flank pain I doubt entities such as kidney stone do not feel acute imaging indicated Patient only had 20 cc in his bladder after urinating. No signs of UTI, culture sent. No significant anemia from baseline, renal function is adequate. Discussed with him and he states he already has a urologist that he sees and will call them for follow-up appointment for possible cystoscopy. He is hemodynamically stable, he will return if anything worsen Differential Diagnosis Differential Diagnosis: UTI, prostatitis, neoplasm Quality:SDOH Health Related Social Needs: No Data to Display PFSH All Active Problems (Updated 07/25/24 @ 21:33 by Ryder Infante MD) Hematuria (Acute) Neuropathy (Acute) Esophageal varices without bleeding (Acute) Functional gastrointestinal disorder (Acute) Anemia (Chronic) Malignant neoplasm of prostate (Chronic 07/25/21) Vitamin D deficiency (Acute) Depression (Chronic) Anxiety (Chronic) Hyperlipidemia (Acute) Medical History (Updated 07/25/24 @ 21:33 by Ryder Infante MD) LLQ pain (~2020) 10/08/23 [facility] GI (pain wraps around to back), plan: labs and colonscopy Altered bowel function 10/08/23 GI Alcohol use disorder Tobacco use disorder QUIT 1986 Pulmonary nodule 11/[address]: no f/u needed PMR (polymyalgia rheumatica) vs. RA? 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 PMR? Dx was in dispute Surgical History (Updated 06/21/24 @ 11:52 by Waleska Winkler RN) Hx of endoscopy 06/14/24[place] [place]. Biopsies if the stomach were negative for H.Pylori LA Grade A reflux esophagitis. 3cm hiatal hernia,erosive gastropathy w/ no bleeding and no stigmata of recent bleeding. normal examined duodenum. Status post appendectomy (~1997) History of hernia surgery B/L inguinal; [place], [place] EGD - MAC (01/2024) Colonoscopy - MAC (~01/2024) Family History Brother Alcohol use disorder Substance use disorder Rectal cancer Depression Suicide Social History Smoking/Tobacco Use Status: Former Tobacco Use Quit Date: 04/28/85 Smoking risk assessment performed?: Yes Alcohol Intake: never Drug use: Never Substance use type: does not use Adopted: No Caregiver/Support person: No Foster care: No Household members: spouse Housing: apartment Number of Children: 2 number of grandchildren: 5 Communication Needs: None Education Level: master's degree Do you need help understanding health information?: Never current occupation: retired Pets and animals: No Sexually active: No Do you think of yourself as: straight/heterosexual Current gender identity: male What is your relationship status?: How often do you talk on the phone with friends or family?: three or more times per week How often do you get together with friends or relatives?: three or more times per week Do you belong to any clubs or organized social groups?: no Panel score (0-1 are the most socially isolated patients): 2 What type of physical activity do you participate in: walking Duration: 15-30 minutes/day Frequency: 1-2 times per week Aileen/Islam: Christian Special aileen needs: No Seatbelt use: always Helmet use: Yes 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
[2024-07-25 20:39] VITALS: BP 197/73; PULSE 90; RESP 20; TEMP 36.7; O2SAT 98
[2024-07-25 20:44] LABS: Bilirubin Negative (Negative); Blood Large (Negative); Clarity Cloudy (Clear); Glucose Negative (Negative); Ketones Negative (Negative); Leukocyte Esterase Negative (Negative); Nitrite Negative (Negative); Specific Gravity 1.015 (1.005-1.025); Urobilinogen 0.2 mg/dL (Up to 0.2); pH 5.5 (5-8)
[2024-07-25 20:47] LABS: C & S Indicated? No; RBC >50 HPF (0-2)
[2024-07-25 20:52] LABS: Abs Immature Grans 0.02 10^3/uL (0.0-0.06); Absolute Basophil Count 0.04 10^3/uL (0.0-0.2); Absolute Eosinophil Count 0.12 10^3/uL (0.0-0.7); Absolute Lymphocyte Count 1.38 10^3/uL (1.2-3.4); Absolute Monocyte Count 0.46 10^3/uL (0.1-0.8); Absolute Neutrophil Count 4.48 10^3/uL (1.2-6.7); Basophils % 0.6 %; Eosinophils % 1.8 %; HCT 38.1 % (40.0-50.0); HGB 12.9 g/dL (13.5-17.5); Immature Grans % 0.3 %; Lymphocytes % 21.2 %; MCH 30.9 pg (27.0-33.0); MCHC 33.9 % (32.0-36.0); MCV 91 fL (80-95); MPV 9.9 fL (8.0-11.0); Monocytes % 7.1 %; Platelet Count 201 10^3/uL (130-400); RBC 4.17 10^6/uL (4.36-5.78); RDW 13.2 % (11.8-14.1); RDW-SD 44.5 fL
[2024-07-25 21:19] LABS: Anion Gap 8.7 mmol/L (3-11); BUN 14 mg/dL (7-18); CO2 27.3 mmol/L (21.0-32.0); Calcium 9.3 mg/dL (8.5-10.1); Chloride 107 mmol/L (98-107); Estimated GFR 76.56 (mL/min/1.73m2); Glucose 149 mg/dL (74-106); Potassium 3.5 mmol/L (3.5-5.1); Sodium 143 mmol/L (136-145)
[2024-07-25 21:41] VITALS: BP 189/75; PULSE 88; RESP 18; O2SAT 98
== END 2024-07-25 21:41 | disposition home or self-care (01) ==
PROVIDERS: Emergency Provider Emergency Medicine; PCP Family Medicine
DX: R31.9 Hematuria, unspecified (principal); I10 Essential (primary) hypertension; E78.5 Hyperlipidemia, unspecified; M35.3 Polymyalgia rheumatica; Z85.46 Personal history of malignant neoplasm of prostate
CPT/HCPCS: 80048; 99284; 81003; 81015; 85025; 99283

== ENCOUNTER 2024-07-30 00:58 | Outpatient (CLI) | payer BC, SELFPAY ==
[2024-08-02 17:08] LABS: PSA, Ultrasensitive 0.13 ng/mL (<= 6.5)
== END 2024-07-30 00:59 | disposition home or self-care (01) ==
PROVIDERS: PCP Family Medicine; Visit Provider Physician Assistant
DX: C61 Malignant neoplasm of prostate (principal)
CPT/HCPCS: 36415; 84153

== ENCOUNTER 2024-08-29 20:06 | Emergency (ER) | payer BC, SELFPAY ==
--- NOTE | 2024-08-29 20:00 | RT.EKG_ITS ---
APPROVED REPORT Exam: Resting ECG Reason for Exam: chest pain Patient Location: E HR:72 bpm ECG Measurements Heart Rate 72 AXIS NH 175 P 8 QRSd 91 QRS 25 QT 376 T 49 QTc 411 Conclusion Sinus rhythm...normal P axis, V-rate 60- 99
[2024-08-29 20:08] VITALS: BP 152/79; PULSE 72; RESP 16; TEMP 36.8; O2SAT 95
--- NOTE | 2024-08-29 20:29 | W.ED.GENAD ---
Discharge Plan Disposition Patient Disposition: Home Condition: Stable Discharge Details Clinical Impression: Acid reflux Primary Care Provider: Oleg Lazo ED Provider: Ryder Infante Home Meds and New Rx's Prescriptions: Continued melatonin 1 mg tablet 2 mg PO HS PRN alfuzosin 10 mg tablet extended release 24 hr 10 mg PO DAILY Qty: 90 0RF Rx Instructions: administer after the same meal each day simvastatin 40 mg tablet 40 mg PO DAILY Qty: 90 3RF cranberry 500 mg capsule 1,000 mg PO DAILY Rx Instructions: administer with meals cholecalciferol (vitamin D3) 50,000 UNIT capsule 50,000 unit PO q 2 wks fluoxetine 10 mg tablet See Rx Instructions .ROUTE .COMPLEX Qty: 90 3RF Dose Instruction: TAKE ONE TABLET BY MOUTH EVERY DAY Rx Instructions: TAKE ONE TABLET BY MOUTH EVERY DAY pantoprazole [Protonix] 40 mg tablet,delayed release (DR/EC) 40 mg PO DAILY Rx Instructions: 06/14/24- [place] [facility] [place]aw[place], use protonix 40mg daily. Staci Townsend MD Discharge Instructions Additional Instructions: You can take an over the counter daily antacid such as omeprazole. Follow up with your primary care provider within 1-2 weeks if symptoms continue. If you feel more ill or have new symptoms such as a pressure sensation in your chest or difficulty breathing return to the emergency department for reevaluation. HPI General Mode of arrival: ambulatory. Date/Time Provider Initiated Documentation: 08/29/24 20:08. Limitations to Documentation: no limitations. Information obtained by: patient. History of Present Illness 78 year old M presents to the emergency department with the chief complaint of chest burning, described as moderate, Quality is described as burning, and is localized to the chest. Patient reports no radiation. Patient started experiencing this day(s) (1) and it has been constant. other things that improve symptom(s), (antacids) Eating worsens symptoms . Patient notes no other symptoms.. Related Data Home Medications ?Medication ?Instructions ?Recorded ?Confirmed cholecalciferol (vitamin D3) 1,250 50,000 unit PO q 2 wks 10/03/16 08/29/24 mcg (50,000 unit) capsule melatonin 1 mg tablet 2 mg PO HS PRN 11/13/22 08/29/24 alfuzosin 10 mg tablet,extended 10 mg PO DAILY #90 tabs 10/09/23 08/29/24 release 24 hr simvastatin 40 mg tablet 40 mg PO DAILY #90 tabs 10/09/23 08/29/24 cranberry 500 mg capsule 1,000 mg PO DAILY 01/27/24 08/29/24 fluoxetine 10 mg tablet See Rx Instructions .Route 06/03/24 08/29/24 .COMPLEX #90 tabs pantoprazole 40 mg tablet,delayed 40 mg PO DAILY 06/14/24 08/29/24 release (Protonix) Previous Rx's ?Medication ?Instructions ?Recorded alfuzosin 10 mg tablet,extended 10 mg PO DAILY #90 tabs 10/09/23 release 24 hr simvastatin 40 mg tablet 40 mg PO DAILY #90 tabs 10/09/23 fluoxetine 10 mg tablet See Rx Instructions .Route 06/03/24 .COMPLEX #90 tabs Allergies Allergy/AdvReac Type Severity Reaction Status Date / Time No Known Allergies Allergy Verified 08/29/24 20:16 General Stated Complaint: Epigastric Pain/Over45 BEV: 4 Review of Systems All systems reviewed & are unremarkable except as noted in HPI and below Constitutional Constitutional: Denies chills, Denies fever(s) and Denies weakness Cardiovascular Cardiovascular: Reports chest pain and Denies dyspnea Respiratory Respiratory: Denies cough and Denies dyspnea Gastrointestinal Gastrointestinal: Denies abdominal pain, Denies nausea and Denies vomiting Neurologic Neurologic: Denies weakness Exam Const General: no acute distress Orientation: alert [facility] Head: normal to inspection Ears: external ears normal General nose exam: external nose normal Mouth: moist mucous membranes Eyes General: appearance normal, both eyes and all related structures Neck Neck: normal visual inspection Resp Effort & Inspection: normal respiratory effort and able to speak in complete sentences Auscultation: clear to auscultation bilaterally Cardio Jugular venous pressure: no JVD Rate: regular rate Heart Sounds: no murmurs GI Palpation: soft and nontender Skin General skin exam: no rashes or lesions noted Neuro General: patient alert and patient oriented x3 Extrem General: normal to inspection Psych Mental Status: mental status grossly normal Course Vital Signs Vital signs: Vital Signs Temperature 36.8 C 08/29/24 20:08 Pulse 72 08/29/24 20:08 Respiratory Rate 16 08/29/24 20:08 Blood Pressure 152/79 H 08/29/24 20:08 Pulse Oximetry 95 08/29/24 20:08 Temperature 36.8 C 08/29/24 20:08 Temperature Source Oral 08/29/24 20:08 Pulse 72 08/29/24 20:08 Respiratory Rate 16 08/29/24 20:08 Blood Pressure 152/79 H 08/29/24 20:08 Blood Pressure Position Sitting 08/29/24 20:08 Pulse Oximetry 95 08/29/24 20:08 Oxygen Delivery Method Room Air 08/29/24 20:08 Oxygen Flow Rate 0 08/29/24 20:08 Pain Level 0 08/29/24 20:08 Medical Decision Making 78-year-old male with a history of anxiety, depression, hyperlipidemia who comes in with chest burning sensation since yesterday especially when he eats and is relieved with antacids. He denies any pain with exertion, no chest pressure, no difficulty breathing. He states that he ate steak tonight which made the burning sensation worse and resolved with [id number] antacid. He is well-appearing speaking full sentences in no distress. A soft nontender abdomen, clear lung sounds, no JVD, no leg swelling or calf tenderness. I suspect GERD or esophagitis, less likely ACS but given his age we will check troponins. No tearing back pain to suggest dissection and he has no tachycardia or hypoxia no evidence of DVT on exam so I doubt PE. Labs unremarkable and has had symptoms for a day with a negative troponin do not feel delta troponin indicated. He is stable and asymptomatic. He will follow-up with his PCP and return precautions given. Differential Diagnosis Differential Diagnosis: GERD, NSTEMI Lab Data Lab results reviewed: Yes I reviewed the patient's lab results. ECG Data Attestation: I personally reviewed and interpreted this ECG (s) as follows: Prior ECG tracings: not available for review Interpretation: sinus rate of 72 pr 175 no stemi Quality:SDOH Health Related Social Needs: No Data to Display PFSH All Active Problems (Updated 08/29/24 @ 21:35 by Ryder Infante MD) Acid reflux (Chronic) Neuropathy (Acute) Esophageal varices without bleeding (Acute) Functional gastrointestinal disorder (Acute) Anemia (Chronic) Malignant neoplasm of prostate (Chronic 07/25/21) Vitamin D deficiency (Acute) Depression (Chronic) Anxiety (Chronic) Hyperlipidemia (Acute) Medical History (Updated 08/29/24 @ 21:35 by Ryder Infante MD) LLQ pain (~2020) 10/08/23 GI (pain wraps around to back), plan: labs and colonscopy Altered bowel function 10/08/23 GI Alcohol use disorder Tobacco use disorder QUIT 1985 Pulmonary nodule 11/[address]: no f/u needed PMR (polymyalgia rheumatica) vs. RA? 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 PMR? Dx was in dispute Surgical History (Updated 06/21/24 @ 11:52 by Waleska Winkler RN) Hx of endoscopy 06/14/24[place] [place]. Biopsies if the stomach were negative for H.Pylori LA Grade A reflux esophagitis. 3cm hiatal hernia,erosive gastropathy w/ no bleeding and no stigmata of recent bleeding. normal examined duodenum. Status post appendectomy (~1997) History of hernia surgery B/L inguinal; [place] - MAC (01/2024) Colonoscopy - [facility] (~01/2024) Family History Brother Alcohol use disorder Substance use disorder Rectal cancer Depression Suicide Social History Smoking/Tobacco Use Status: Former Tobacco Use Quit Date: 04/28/85 Smoking risk assessment performed?: Yes Alcohol Intake: never Drug use: Never Substance use type: does not use Adopted: No Caregiver/Support person: No Foster care: No Household members: spouse Housing: apartment Number of Children: 2 number of grandchildren: 5 Communication Needs: None Education Level: master's degree Do you need help understanding health information?: Never current occupation: retired Pets and animals: No Sexually active: No Do you think of yourself as: straight/heterosexual Current gender identity: male What is your relationship status?: How often do you talk on the phone with friends or family?: three or more times per week How often do you get together with friends or relatives?: three or more times per week Do you belong to any clubs or organized social groups?: no Panel score (0-1 are the most socially isolated patients): 2 What type of physical activity do you participate in: walking Duration: 15-30 minutes/day Frequency: 1-2 times per week Aileen/Christianity: Confucianist Special aileen needs: No Seatbelt use: always Helmet use: Yes 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
[2024-08-29 21:09] LABS: ALT 22 U/L (16-63); AST 18 U/L (15-37); Albumin 3.8 g/dL (3.4-5.0); Alkaline Phosphatase 85 U/L (46-116); Anion Gap 7.2 mmol/L (3-11); BUN 17 mg/dL (7-18); Bilirubin, Total 0.4 mg/dL (0.2-1.0); CO2 29.8 mmol/L (21.0-32.0); CREATININE 1.1 mg/dL (0.70-1.30); Calcium 9.7 mg/dL (8.5-10.1); Chloride 103 mmol/L (98-107); Estimated GFR 68.29 (mL/min/1.73m2); Glucose 107 mg/dL (74-106); Lipase 40 U/L (<78); Magnesium 2.1 mg/dL (1.8-2.4); Potassium 3.9 mmol/L (3.5-5.1); Sodium 140 mmol/L (136-145); Total Protein 7.6 g/dL (6.4-8.2); Troponin I 4 ng/L (<or=76)
[2024-08-29 21:16] LABS: HCT 38.8 % (40.0-50.0); HGB 13.2 g/dL (13.5-17.5); MCH 30.8 pg (27.0-33.0); MCV 90 fL (80-95); MPV 10.4 fL (8.0-11.0); Platelet Count 249 10^3/uL (130-400); RBC 4.29 10^6/uL (4.36-5.78); RDW 12.8 % (11.8-14.1); RDW-SD 42.4 fL; WBC 6.55 10^3/uL (4.4-10.8)
[2024-08-29 21:32] VITALS: BP 167/80; PULSE 70; RESP 16; O2SAT 97
== END 2024-08-29 22:05 | disposition home or self-care (01) ==
PROVIDERS: Emergency Provider Emergency Medicine; PCP Family Medicine
DX: K21.9 Gastro-esophageal reflux disease without esophagitis (principal); M35.3 Polymyalgia rheumatica; I10 Essential (primary) hypertension; E78.5 Hyperlipidemia, unspecified; Z87.891 Personal history of nicotine dependence
CPT/HCPCS: 36415; 80053; 83690; 85027; 93005; 99284; 83735; 84484; 93010

== ENCOUNTER 2024-09-24 17:04 | Outpatient (REF) | payer BC, SELFPAY | END 2024-09-24 17:05 | disposition home or self-care (01) | LOC: LBN 17:04 | PROVIDERS: PCP Family Medicine; Visit Provider Urology | DX: R30.0 Dysuria (principal) | CPT/HCPCS: 87086 ==

== ENCOUNTER 2024-10-22 09:25 | Outpatient (CLI) | payer BC, SELFPAY ==
[2024-10-22 16:12] LABS: Vitamin B12 926 pg/mL (193-986)
[2024-10-22 18:59] LABS: Hemoglobin A1C 5.8 % (<5.7)
[2024-10-22 21:39] LABS: Total Protein 6.7 g/dL (6.3-8.2)
[2024-10-25 14:02] LABS: Albumin 58.2 % (55.8-66.1); Albumin g/dL 3.9 g/dL (3.6-5.2)
== END 2024-10-22 09:26 | disposition home or self-care (01) ==
LOC: LBO 09:25
PROVIDERS: Psychiatry & Neurology Neurology; PCP Family Medicine; Visit Provider Family Medicine
DX: G62.9 Polyneuropathy, unspecified (principal); R73.9 Hyperglycemia, unspecified
CPT/HCPCS: 36415; 82607; 83036; 84165

== ENCOUNTER 2025-02-24 03:36 | Outpatient (CLI) | payer BC, SELFPAY | END 2025-02-24 03:37 | disposition home or self-care (01) | PROVIDERS: PCP Family Medicine; Visit Provider Physician Assistant | DX: C61 Malignant neoplasm of prostate (principal) | CPT/HCPCS: 36415; 84153 ==